=== PATIENT | male | born 1990 | race African-American/Black ===

== ENCOUNTER 2022-03-25 19:20 | Emergency (ER) | payer MEDICAID ==
[~2022-03-25] VITALS: Ht 170.2 cm; Wt 54.4 kg
[2022-03-25 19:33] VITALS: BP 163/82
[2022-03-25] MEDS ORDERED: IBUPROFEN 600MG TABLET PO ONE (21:30)
[2022-03-25] MEDS ORDERED: IBUP-2029 MT (22:29)
[2022-03-25] MEDS ORDERED: TETANUS, DIPHTHERIA, PERTUSSIS VAC/PF 0.5ML (>10YR OLD) IM ONE (22:30)
== END 2022-03-25 23:00 | disposition home or self-care (01) ==
LOC: ER 19:20
DX: S90.01XA Contusion of right ankle, initial encounter (principal); S60.221A Contusion of right hand, initial encounter; Z59.00 Homelessness unspecified; Y04.0XXA Assault by unarmed brawl or fight, initial encounter; Y93.89 Activity, other specified; Y92.89 Other specified places as the place of occurrence of the external cause
CPT/HCPCS: 73130; 73610; 99284

== ENCOUNTER 2022-12-03 18:35 | Emergency (ER) | payer MEDICAID ==
[~2022-12-03] VITALS: Ht 170.2 cm; Wt 137.0 kg
[~2022-12-03 18:35] MED LIST: IBUP-2029 MT
[2022-12-03] MEDS ORDERED: METHOCARBAMOL 500MG TABLET PO ONE (21:30)
[2022-12-03] MEDS ORDERED: IBUPROFEN 600MG TABLET PO ONE (21:30)
[2022-12-03] MEDS ORDERED: METH-653 MT (22:01)
[2022-12-03] MEDS ORDERED: IBUP-2028 MT (22:01)
[2022-12-03 22:02] VITALS: BP 141/84
== END 2022-12-03 22:21 | disposition home or self-care (01) ==
LOC: ER 18:35
DX: M25.512 Pain in left shoulder (principal)
CPT/HCPCS: 99283

== ENCOUNTER → 2023-01-17 | Day surgery (SDC) | payer OTHER ==
[2023-01-17] VITALS (12 sets, daily range): BP systolic 150–171; BP diastolic 84–103
[~2023-01-17] VITALS: Ht 170.2 cm; Wt 149.7 kg
[~2023-01-17] MED LIST changes: +FENTANYL CITRATE/PF 50MCG/ML 2ML VIAL IV NR; +FENTANYL CITRATE/PF 50MCG/ML 2ML VIAL IV ONE; +FENTANYL CITRATE/PF 50MCG/ML 2ML VIAL ONE; +HYDROCODONE/ACETAMINOPHEN 5/325MG TABLET PO PRN; +IBUP-2028 MT; +LIDOCAINE HCL 1% 10 MG/ML 10ML VIAL ONE; +METH-653 MT; +SODIUM BICARBONATE 4% (2.4MEQ) 5ML VIAL IV ONE
[2023-01-17 12:38] LABS: HEMATOCRIT 37.5 % (42.0-52.0); HEMOGLOBIN 12.4 g/dL (14.0-18.0)
== END | disposition home or self-care (01) ==
LOC: RAD 07:57
PROVIDERS: ATTEND General Practice
DX: K75.81 Nonalcoholic steatohepatitis (NASH) (principal); K76.89 Other specified diseases of liver; E66.9 Obesity, unspecified; Z79.899 Other long term (current) drug therapy; Z98.890 Other specified postprocedural states; Z68.43 Body mass index [BMI] 50.0-59.9, adult; Z20.822 Contact with and (suspected) exposure to COVID-19
CPT/HCPCS: 36415; 47000; 76942; 85014; 85018; J3010; J3490; Z7610; 99152; 99153; G0500

== ENCOUNTER 2023-07-27 03:44 | Emergency (ER) | payer MEDICAID, OTHER ==
[~2023-07-27] VITALS: Ht 167.6 cm; Wt 157.0 kg
[~2023-07-27 03:44] MED LIST changes: -FENTANYL CITRATE/PF 50MCG/ML 2ML VIAL IV NR; -FENTANYL CITRATE/PF 50MCG/ML 2ML VIAL IV ONE; -FENTANYL CITRATE/PF 50MCG/ML 2ML VIAL ONE; -HYDROCODONE/ACETAMINOPHEN 5/325MG TABLET PO PRN; -LIDOCAINE HCL 1% 10 MG/ML 10ML VIAL ONE; -SODIUM BICARBONATE 4% (2.4MEQ) 5ML VIAL IV ONE
[2023-07-27 04:00] VITALS: O2SAT 97
[2023-07-27] MEDS ORDERED: TETANUS, DIPHTHERIA, PERTUSSIS VAC/PF 0.5ML (>10YR OLD) IM ONE (04:30)
[2023-07-27] MEDS ORDERED: CEFAZOLIN 1000MG PREMIX 50 ML IV STA (04:31)
[2023-07-27] MEDS ORDERED: KETOROLAC 15MG/ML VIAL IV ONE (04:45)
[2023-07-27] MEDS ORDERED: NAPR-681 MT (06:08)
[2023-07-27] MEDS ORDERED: CEPH500C2 MT (06:08)
[2023-07-27 06:30] VITALS: BP 155/95; PULSE 98; RESP 16; TEMP 98.5
[2023-07-27] MEDS ORDERED: BACITRACIN ZINC OINT UDPKT TOP NR (06:45)
== END 2023-07-27 06:41 | disposition home or self-care (01) ==
LOC: ER 03:44
DX: S81.031A Puncture wound without foreign body, right knee, initial encounter (principal); L03.116 Cellulitis of left lower limb; W18.39XA Other fall on same level, initial encounter; Y93.89 Activity, other specified; Y92.89 Other specified places as the place of occurrence of the external cause; Y99.8 Other external cause status
CPT/HCPCS: 73562; 90715; 90471; 96365; 96375; 99284; J0690; J1885; Z7610

== ENCOUNTER 2024-02-12 23:43 | Emergency (ER) | payer MEDICAID ==
[~2024-02-12] VITALS: Ht 170.2 cm; Wt 149.7 kg
[~2024-02-12 23:43] MED LIST changes: +CEPH500C2 MT; +NAPR-681 MT
[2024-02-13 01:04] VITALS: TEMP 100.1; O2SAT 98
[2024-02-13 01:30] VITALS: BP 159/83; PULSE 105; RESP 18
[2024-02-13] MEDS: KETOROLAC 60MG/2ML VIAL IM ONE (01:30)
[2024-02-13] MEDS: DEXAMETHASONE 10 MG/ML VIAL PO ONE (01:30)
[2024-02-13] MEDS ORDERED: AMOX1TAB16 MT (02:32)
[2024-02-13] MEDS ORDERED: IBUP-2030 MT (02:32)
== END 2024-02-13 02:52 | disposition home or self-care (01) ==
LOC: ER 23:43
DX: J03.90 Acute tonsillitis, unspecified (principal)
CPT/HCPCS: 99283; 87430; 87070; 96372; J1100; J1885

== ENCOUNTER 2024-10-29 04:27 | Emergency (ER) | payer OTHER, MEDICAID ==
[~2024-10-29] VITALS: Ht 170.2 cm; Wt 154.0 kg
[~2024-10-29 04:27] MED LIST changes: +AMOX1TAB16 MT; +IBUP-2030 MT
[2024-10-29 05:04] VITALS: O2SAT 97
[2024-10-29] MEDS: KETOROLAC 30MG/ML VIAL IM STA (06:45)
[2024-10-29] MEDS ORDERED: PENI500T MT (06:49)
[2024-10-29] MEDS ORDERED: IBUP-2029 MT (06:49)
[2024-10-29 06:58] VITALS: BP 156/82; PULSE 92; RESP 18; TEMP 36.83628; O2SAT 97
== END 2024-10-29 07:01 | disposition home or self-care (01) ==
LOC: ER 04:47
DX: J03.90 Acute tonsillitis, unspecified (principal); Z20.822 Contact with and (suspected) exposure to COVID-19; Z79.899 Other long term (current) drug therapy
CPT/HCPCS: 99283; 87426; 87430; 96372; J1885

== ENCOUNTER 2025-10-20 16:26 | Emergency (ER) | payer OTHER ==
[~2025-10-20] VITALS: Ht 172.7 cm; Wt 127.0 kg
[~2025-10-20 16:26] MED LIST changes: +IBUP-1455 MT; -IBUP-2029 MT; +PENI500T MT
[2025-10-20 16:39] VITALS: O2SAT 95
[2025-10-20] MEDS ORDERED: TOPUD PO (18:25)
[2025-10-20] MEDS ORDERED: IBUP-1455 MT (18:25)
[2025-10-20] MEDS: ACETAMINOPHEN 500MG TABLET PO ONE (18:38)
[2025-10-20] MEDS: IBUPROFEN 600MG TABLET PO ONE (18:38)
[2025-10-20 18:40] VITALS: BP 150/93; PULSE 99; RESP 16; TEMP 36.8; O2SAT 95
== END 2025-10-20 18:46 | disposition home or self-care (01) ==
LOC: ER 16:26
DX: M25.512 Pain in left shoulder (principal); M54.2 Cervicalgia; R51.9 Headache, unspecified; M54.9 Dorsalgia, unspecified; Z79.1 Long term (current) use of non-steroidal anti-inflammatories (NSAID); V43.52XA Car driver injured in collision with other type car in traffic accident, initial encounter; Y92.410 Unspecified street and highway as the place of occurrence of the external cause; Y93.89 Activity, other specified; Y99.8 Other external cause status
CPT/HCPCS: 99283